=== PATIENT | male | born 1965 | race African-American/Black ===

== ENCOUNTER 2021-09-29 20:53 | Emergency (ER) | payer OTHER, SELFPAY ==
[2021-09-29 20:54] VITALS: BP 174/98; PULSE 96; RESP 18; TEMP 36.7; O2SAT 99; BMI 29.2
--- NOTE | 2021-09-29 21:06 | RAD_ITS ---
EXAM: XR RIGHT SHOULDER COMPLETE, 2 OR MORE VIEWS CLINICAL INDICATION: atraumatic right shoulder pain TECHNIQUE: Two or more views of the right shoulder. This report was created using [employer] report generation technology. COMPARISON: None. FINDINGS: BONES/JOINTS: Unremarkable. No acute fracture. No subluxation. Normal alignment. Preservation of the joint space. No sclerotic or destructive changes observed. SOFT TISSUES: Unremarkable. No soft tissue swelling or gas. No radiopaque foreign body. RAD/Shoulder min 2 Views IMPRESSION: Negative right shoulder x-rays. Electronically Signed: Te Delaney MD at 21:33 EDT ,
--- NOTE | 2021-09-29 21:06 | EKG12_ITS ---
Test Reason : DYSRHYTHMIA Blood Pressure : / mmHG Vent. Rate : 080 BPM Atrial Rate : 080 BPM P-R Int : 198 ms QRS Dur : 102 ms QT Int : 372 ms P-R-T Axes : 052 -38 027 degrees QTc Int : 429 ms Normal sinus rhythm Left axis deviation Abnormal ECG Confirmed by ANGEL BERNABE, ALKA ([id number]), make up editor ANIRUDH SOTELO ([id number]) on 10/01/2021 10:13:13 AM Referred By: NAS Confirmed By:ALKA ORTIZ MD
--- NOTE | 2021-09-29 21:07 | EX.ED.UPPERE ---
HPI History of Present Illness Chief Complaint: Upper Extremity Injury Detail of Chief Complaint: Atraumatic right shoulder pain. Informant: patient Occured/Mechanism Mechanism/Context: No injury and No blunt trauma Onset/Context/Timing Onset: Today and Hours Context: Gradual Onset Timing: Continuous Quality of Pain: Dull and Aching Current Severity: Mild Maximum Severity: Mild Associated Symptoms Associated Symptoms: Negative for Parasthesia, Weakness and Loss of Funtion Narrative Narrative: 55-year-old male no seen past medical or surgical history. Currently on no medications. States he normally works third shift he was taking a nap today this morning and when he woke up he had right shoulder discomfort. He does not know of any type of injury. He has never had any surgery or trauma to his right shoulder. He denies any falls or heavy lifting. He drives a tow motor at work. He denies any fever, chills or redness. He said he had discomfort like this before in his right shoulder but is never lasted all day. Denies any midsternal or left-sided chest pain. Denies any exertional symptoms. Pain is somewhat worse with movement. He denies any fever chills or recent illness. He is right-hand dominant. Prior similar symptoms: No Recent Illness/Hospitalization: No PFSH PFSH Medical History no medical history no medical history Home Medications naproxen 500 mg PO BID PRN #20 tab 04/16/15 [Rx Last Taken Unknown] Allergy/AdvReac Type Severity Reaction Status Date / Time No Known Allergies Allergy Verified 09/29/21 20:56 Surgical History no surgical history no surgical history Social History Smoking Status: Never smoker ROS ROS ED ROS Narrative Denies recent illness. Review of Systems ROS Unobtainable: Denies due to encephalopathy Constitutional Constitutional ED: Denies fever(s) Eyes Eyes: Denies change in vision ENT ENT ED: Denies ear pain Cardiovascular Cardiovascular: Denies chest pain Respiratory/Chest Respiratory/Chest: Denies cough or dyspnea Gastrointestinal Gastrointestinal: Denies abdominal pain Genitourinary Genitourinary ED: Denies dysuria Musculoskeletal Musculoskeletal: Denies back pain, myalgias or neck pain Integumentary Denies rash Neurologic Neurologic: Denies headache(s) Psychiatric Psychiatric: Denies depression Endocrine Endocrinology: Denies polyuria Hematologic/Lymphatic Hematologic/Lymphatic: Denies easy bruising Allergic/Immunologic Allergic/Immunologic ED: Denies urticaria EXAM Physical Exam Narrative Exam Narrative: Noise male no acute distress vital signs stable afebrile. Blood pressure elevated 174/98. Pulse ox 9 9% on room air no hypoxia. H EENT exam unremarkable. Neck nontender. Trachea midline. Lungs clear to auscultation. Heart regular rhythm no murmur. Chest wall nontender. Abdomen soft nontender. Moving all 4 extremities. Calves are nontender no edema. Equal symmetrical barber or beauty shop manager strength. Normal flexion-extension of both wrists, elbows and shoulders. He has some mild discomfort with moving his right shoulder. There is no redness or warmth. No swelling. No signs of trauma. No axillary lymphadenopathy. Equal symmetrical radial pulses. Back nontender. Neurologically is awake and alert. Const Vital Signs: 09/29/21 20:54 Temperature 98.0 F Temperature Source Temporal Pulse Rate 96 Respiratory Rate 18 Blood Pressure 174/98 H Blood Pressure Mean 123 Pulse Ox 99 Oxygen Delivery Method Room Air Positive well nourished and well developed; Negative for cachectic, contractures or unkempt General Appearance ED: well developed and NAD; Negative for unkempt, cachectic, contractures, cyanotic or diaphoretic Nutritional Appearance: Negative for cachectic HEENT Reports moist mucous membranes normocephalic; Negative for atraumatic or trauma Eyes PERRL and EOMs intact bilaterally Neck full ROM and supple General: Negative for tenderness Chest Wall inspection of chest normal and palpation of chest normal Resp normal respiratory effort and clear to auscultation bilaterally Auscultation: Negative for rales, rhonchi or wheezes Cardio regular rate, regular rhythm, S1 normal heart sound, S2 normal heart sound and no murmurs GI non-tender, non-distended and no masses Inspection: Negative for abdominal distention Auscultation: normoactive bowel sounds; Negative for hyperactive bowel sounds or hypoactive bowel sounds Palpation: soft; Negative for tender, guarding or rebound tenderness present Back/Spine no CVA tenderness General Back: Negative for CVA tenderness Cervical Spine: Negative for cervical spine tenderness Thoracic Spine / Upper Back: Negative for thoracic spinal tenderness Lumbar Spine / Lower Back: Negative for lumbar spinal tenderness Extremity normal to inspection and full ROM Extremity Narrative: Right shoulder minimal tenderness. Normal range of motion. Able to do AB and adduction. Able to extend and lift his hand over his head. No swelling. No redness. No bony deformity. General Extremety ED: Negative for edema General Extremity: Negative for edema Neuro oriented x3 and moves all extremities Sensorium / Orientation: alert, oriented to person, oriented to place and oriented to time; Negative for orientation impaired, lethargic or stuporous Motor Exam: strength 5/5 throughout Psych mental status grossly normal Appearance: Negative for unkempt Attitude: No agitated Mood & Affect: Negative for depressed or tearful Skin Lesions: no lesions Rashes: no rashes Trauma: no lacerations or abrasions; Negative for abrasion or laceration MDM MDM MDM Narrative Medical decision making narrative: Middle-aged male with atraumatic right shoulder pain today. Clinically his exam is benign other than mild discomfort. He has range of motion. Does not appear to be a rotator cuff injury. It does appear to be musculoskeletal. X-ray and EKG will be obtained. However I do not feel this is cardiac. Repeat exam at 9:30 PM doing well. We discussed his test results and x-rays not be discharged to home. Radiography Diagnostic Testing: Right shoulder x-ray interpreted by me 4 view shows no acute abnormality. Normal bony structure. No fracture. No dislocation. No substantial signs of arthritis. Chest x-ray, portable, single view interpreted by me shows no acute abnormality. Normal cardiac silhouette, mediastinum and lung zurita. No bony abnormalities. Rhythm Strip Rhythm Strip: Sinus Rhythm Rate: 80 EKG Initial EKG: Attestation: I personally reviewed and interpreted this EKG as follows: Interpretation: Sinus Rhythm and No Acute Injury Pattern Comments: Normal sinus rhythm rate of 80 no acute signs of WA or ischemia. Prior EKG tracings: not available for review Discharge Plan Triage Chief Complaint: Upper Extremity Injury ED Provider: Mauricio Zavala Dx/Rx/DC Orders Clinical Impression: Right shoulder strain Instructions: ED Muscle Strain, Extremity Prescriptions: No Action naproxen 500 MG tablet 500 mg PO BID PRN Qty: 20 RF: 0 Primary Care Provider: Care Physician,No Primary Referrals: Jacinto Rojo MD [STAFF PHYSICIAN] - 1 Week Care Physician,No Primary [Primary Care Provider] - Activity Restrictions/Additional Instructions: This appears to be musculoskeletal pain in your right shoulder. Motrin for pain and inflammation. Ice to your shoulder to decrease pain and inflammation. This should progressively improve. Follow-up with a doctor I referred you to Dr. Jacinto Rojo to get a primary care physician. Also tonight your blood pressure was elevated which may or may not mean anything but it needs to be rechecked to make sure you are not developing high blood pressure. Disposition Disposition: Home, Self Care
--- NOTE | 2021-09-29 21:10 | RAD_ITS ---
EXAM: XR CHEST, 1 VIEW CLINICAL INDICATION: right upper outer cp TECHNIQUE: Frontal view of the chest. This report was created using [employer] report generation technology. COMPARISON: 12/26/2011. FINDINGS: LUNGS AND PLEURAL SPACES: Unremarkable. No consolidation or edema. No pneumothorax. No effusion. HEART: Unremarkable. Cardiac silhouette not enlarged. MEDIASTINUM: Central airways and mediastinal contour are unremarkable. BONES/JOINTS: Unremarkable. SOFT TISSUES: Unremarkable. RAD/Chest 1 View (Portable) IMPRESSION: No radiographic evidence of acute cardiopulmonary disease. Electronically Signed: Te Delaney MD at 21:32 EDT ,
== END 2021-09-29 21:44 | disposition home or self-care (01) ==
LOC: ED 21:37
PROVIDERS: Emergency Provider Emergency Medicine; Visit Provider Emergency Medicine
DX: S46.911A Strain of unspecified muscle, fascia and tendon at shoulder and upper arm level, right arm, initial encounter (principal); X58.XXXA Exposure to other specified factors, initial encounter
CPT/HCPCS: 71045; 73030; 93005; 99282

== ENCOUNTER 2023-12-28 08:20 | Emergency (ER) | payer OTHER, SELFPAY ==
[2023-12-28 08:23] VITALS: BP 168/102; PULSE 89; RESP 16; TEMP 36.6; O2SAT 99; BMI 32.1
--- NOTE | 2023-12-28 08:45 | RAD_ITS ---
STUDY: X-RAY - RIGHT ANKLE REASON FOR EXAM: Male, 58 years old. Pain after ran over by forklift TECHNIQUE: 3 view(s) of the ankle. COMPARISON: None. FINDINGS: Normal visualized distal tibia and fibula. Nondisplaced transverse fracture of the medial malleolus. Nondisplaced oblique fracture of the lateral malleolus. Normal tibiotalar articulation and ankle mortise. Normal visualized talus and calcaneus. The visualized subtalar, talonavicular, calcaneocuboid and tarsal articulations are normal. Soft tissue swelling RAD/Ankle min 3 Views IMPRESSION: Nondisplaced transverse fracture of the medial malleolus as well as a spiral fracture of the lateral malleolus with overlying soft tissue swelling. Electronically Signed: Harvey Camp MD at 9:17 EDT ,
--- NOTE | 2023-12-28 08:46 | EX.ED.DYSGE1 ---
HPI History of Present Illness Chief Complaint: Lower Extremity Injury Narrative Narrative: Patient is a 58-year-old male with no known significant past medical history does not follow with a physician who presented to the emergency department with a chief complaint of right ankle pain. Patient states that this morning at work a forklift ran over his foot causing him pain. He states that it is painful for him time to bear weight he did not take any medication for pain prior to coming here. Patient states that he did fall over after his foot was run over however he states that he did not hit his head did not pass out did not lose consciousness does not take any blood thinning medications. He states that he is not having pain or else. PFSH PFSH Medical History no medical history Home Medications ?Medication ?Instructions ?Recorded ?Last Taken ?Type naproxen 500 mg tablet 500 mg PO BID PRN #20 tabs 04/16/15 Unknown Rx Allergy/AdvReac Type Severity Reaction Status Date / Time No Known Allergies Allergy Verified 12/28/23 08:34 Surgical History no surgical history Social History Smoking Status: Never smoker ROS ROS ED ROS Narrative Constitutional: Denies headaches, fevers, chills Eyes: No change in vision double vision blurry vision Cardiovascular: Denies chest pain or palpitations Respiratory: Denies coughing wheezing shortness of breath Abdomen: Denies nausea vomit diarrhea or abdominal pain : Denies urinary symptoms Neurological: Denies numbness, weakness, tingling Musculoskeletal: Complains of right ankle pain as noted above Skin: Denies rashes or lesions EXAM Physical Exam Narrative Exam Narrative: General: Patient lying in bed rest comfortably did not appear to be in acute distress Head: Atraumatic, normocephalic Eyes: PERRL bilaterally, EOMI bilaterally, no conjunctival injection noted Neck: Soft, supple, trachea midline Cardiovascular: Regular rate and rhythm no murmurs gallops rubs noted Respiratory: Clear to auscultation bilaterally Abdomen: No tenderness palpation Musculoskeletal: Patient has tenderness palpation over the medial and lateral malleoli bilaterally, all other bony prominences and joints taken through full range of motion no pain elicited Extremities: DP pulses +2/4 in the bilateral lower extremities, no pedal edema on exam, +5/5 strength noted in the bilateral upper and lower extremities Neurological: Patient is following commands that he was at [facility] year is 2023 Skin: Warm, dry, intact Const Vital Signs: 12/28/23 08:23 12/28/23 08:56 Temperature 97.9 F Temperature Source Temporal Pulse Rate 89 89 Respiratory Rate 16 16 Blood Pressure 168/102 H 164/90 H Blood Pressure Mean 124 114 Pulse Ox 99 99 Oxygen Delivery Method Room Air Room Air MDM MDM MDM Narrative Medical decision making narrative: Patient is a 58-year-old male who presents to the emergency department chief complaint of right ankle pain. Patient will have a workup performed here on the differential diagnose includes but not limited to ankle sprain, medial malleolus fracture, lateral malleolus fracture, metatarsal fracture. Once workup is obtained and reviewed he will be reevaluated. Patient was offered pain medication states that he does not need any currently Patient's x-ray reviewed and did appear to have a nondisplaced transverse fracture of the medial malleolus as well as a spiral fracture of the lateral malleolus with overlying soft tissue swelling. No concern for open fracture. Patient's x-ray of his foot showed normal examination of the foot. Did discuss the case with on-call clinical haematologist as there is no on-call orthopedics here today Dr. Martinez and he recommends a AO splint crutches nonweightbearing and follow-up in the office with him. Patient was placed in a AO splint with plaster. After application of the splint patient remained neurovascularly intact. Repeat x-ray was obtained which showed satisfactory reduction of the bilateral malleolus fracture. Did discuss results with the patient and he would like to go home now. I did offer him pain medication he states that he will just take ibuprofen Tylenol for pain control. He is encouraged to ice through the splint. He is encouraged to return with worsening pain or any other concerns. He was encouraged to follow-up with Dr. Martinez and he was referred to a primary care physician. He was encouraged to monitor his blood pressure at home he is completely asymptomatic here at this point in time. All question concerns were answered he is discharged home in stable condition. Procedure note Splint application Indication: Bimalleolar fracture Patient had Webril applied to the right lower extremity followed by plaster this was molded in place. Thang wrap was then applied over and post reduction splinting x-rays were obtained as noted above. Patient once again remains neurovascularly intact. Radiography Diagnostic Testing: Clinical Impression(s) from Imaging Studies Ankle X-Ray 12/28/23 08:45 IMPRESSION: Nondisplaced transverse fracture of the medial malleolus as well as a spiral fracture of the lateral malleolus with overlying soft tissue swelling. Electronically Signed: Harvey Camp MD at 9:17 EDT , Foot X-Ray 12/28/23 09:00 IMPRESSION: Normal x-ray examination of the foot. Electronically Signed: Harvey Camp MD at 9:18 EDT , Ankle X-Ray 12/28/23 10:15 IMPRESSION: Satisfactory reduction of the bimalleolar fracture. Electronically Signed: Harvey Camp MD at 10:50 EDT , Discharge Plan Triage Chief Complaint: Lower Extremity Injury ED Provider: Nadeem Vee Dx/Rx/DC Orders Clinical Impression: Ankle fracture, bimalleolar, closed Prescriptions: No Action naproxen 500 MG tablet 500 mg PO BID PRN Qty: 20 0RF Primary Care Provider: Care Physician,No Primary Referrals: Care Physician,No Primary [Primary Care Provider] - Te Martinez DPM [Med Staff - Active Staff] - Luis Santizo MD [Med Staff - Active Staff] - Activity Restrictions/Additional Instructions: You are to use the crutches and remain nonweightbearing on the right lower extremity. Follow-up with Dr. Martinez in the outpatient setting. Follow-up with the family doctor that you referred to and keep a close eye on your blood pressure. Return for increasing pain in your right lower extremity or any other concerns. Ice, elevate, use ibuprofen Tylenol [id number] for pain control Print Language: Romanian Disposition Disposition: Home, Self Care
[2023-12-28 08:56] VITALS: BP 164/90; PULSE 89; RESP 16; O2SAT 99
--- NOTE | 2023-12-28 09:00 | RAD_ITS ---
STUDY: X-RAY - RIGHT FOOT CLINICAL: Male, 58 years old. Pain following injury. TECHNIQUE: 2 view(s) of the foot. COMPARISON: None. FINDINGS: Normal talus, calcaneus, and tarsal bones. Normal visualized subtalar, talonavicular, calcaneocuboid, tarsal and tarsometatarsal articulations. Normal metatarsi. Normal metatarsophalangeal joint of the great toe. Normal tibial and fibular sesamoid bones. Normal interphalangeal joint of the great toe. Normal phalanges of the great toe. Normal second through fifth metatarsophalangeal joints. Normal interphalangeal joints and phalanges of the lesser toes. The soft tissue structures are unremarkable. No transverse fracture of the medial malleolus and spiral fracture of the lateral malleolus. RAD/Foot 2 Views IMPRESSION: Normal x-ray examination of the foot. Electronically Signed: Harvey Camp MD at 9:18 EDT ,
--- NOTE | 2023-12-28 10:15 | RAD_ITS ---
STUDY: X-RAY - RIGHT ANKLE REASON FOR EXAM: Male, 58 years old. Post splint TECHNIQUE: 3 view(s) of the ankle. COMPARISON: Comparison is made with prior study done earlier today. FINDINGS: There is satisfactory reduction of the bimalleolar fracture. RAD/Ankle min 3 Views IMPRESSION: Satisfactory reduction of the bimalleolar fracture. Electronically Signed: Harvey Camp MD at 10:50 EDT ,
[2023-12-28 11:44] VITALS: BP 171/101; PULSE 85; RESP 18; TEMP 36.8; O2SAT 97
== END 2023-12-28 11:45 | disposition home or self-care (01) ==
PROVIDERS: Emergency Provider Emergency Medicine; Visit Provider Emergency Medicine
DX: S82.841A Displaced bimalleolar fracture of right lower leg, initial encounter for closed fracture (principal); W24.0XXA Contact with lifting devices, not elsewhere classified, initial encounter; Y99.0 Civilian activity done for income or pay; Y92.89 Other specified places as the place of occurrence of the external cause
CPT/HCPCS: 29515; 73610; 73620; 99283

== ENCOUNTER → 2024-01-17 | Outpatient (CLI) | payer OTHER, SELFPAY ==
--- NOTE | 2024-01-17 10:37 | EKG12_ITS ---
Test Reason : PREOP Blood Pressure : / mmHG Vent. Rate : 074 BPM Atrial Rate : 074 BPM P-R Int : 196 ms QRS Dur : 092 ms QT Int : 380 ms P-R-T Axes : 060 036 036 degrees QTc Int : 421 ms Normal sinus rhythm Normal ECG Confirmed by LUCÍA BERNABE, DAVE ([id number]), editor managing director ANIRUDH SOTELO ([id number]) on 01/17/2024 11:10:00 A M Referred By: Scott Arellano Confirmed By:DANNA CASTREJON MD
[2024-01-17 11:17] LABS: Absolute Lymphocyte Count 2.07 X10^3/uL (0.83-4.51); Absolute Neutrophil Count 4.7 X10^3/uL (2.0-7.7); Basophil# 0.07 X10^3/uL; Basophil% 0.9 % (0-1); Eosinophil# 0.21 X10^3/uL; Eosinophils% 2.7 % (0-5); Hematocrit 41.9 % (40-54); Hemoglobin 13.6 g/dL (13.0-16.5); Lymphocyte # 2.07 X10^3/ul (0.83-4.51); Lymphocyte % 26.9 % (19-41); Mean Corp Hgb Conc 32.5 g/dL (32-36); Mean Corpuscular Volume 86.2 fL (80-94); Mean Platelet Vol. 9.3 fl (6.2-12.0); Monocyte# 0.62 X10^3/uL; Monocyte% 8.1 % (0-10); NRBC Flagged by Analyzer 0 % (0-5); Neutrophil # 4.67 X10^3/uL (2.7-7.7); Neutrophil % 60.6 % (47-70); Platelet Count 280 K/mm3 (150-450); RBC Distribution Width CV 12.8 % (11.6-14.6); RBC Distribution Width SD 40.3 fl (35.1-43.9); Red Blood Count 4.86 M/mm3 (4.6-6.2); White Blood Count 7.7 K/mm3 (4.4-11.0)
[2024-01-17 11:27] LABS: Anion Gap 6 (5-15); BUN 12 mg/dL (7-18); BUN/Creat Ratio 12.6 RATIO (10-20); Calcium,Total 9.3 mg/dL (8.5-10.1); Chloride 106 mmol/L (98-107); Creatinine, Serum 0.95 mg/dL (0.70-1.30); EST Glomerular Filtration Rate 86 mL/min (>60); Est Glom Filt Rate - Afr Amer 104 mL/min (>60); Glucose 103 mg/dL (74-106); Sodium Level 140 mmol/L (136-145)
== END | disposition home or self-care (01) ==
PROVIDERS: Referring Provider Student in an Organized Health Care Education/Training Program; Visit Provider Student in an Organized Health Care Education/Training Program
DX: Z01.810 Encounter for preprocedural cardiovascular examination (principal); Z01.818 Encounter for other preprocedural examination
CPT/HCPCS: 36415; 80048; 85025; 93005

== ENCOUNTER 2024-03-22 11:30 | Outpatient (RCR) | payer OTHER, SELFPAY ==
--- NOTE | 2024-02-09 19:02 | HP.PTEVAL ---
Patient's Visit Information Visit Information Visit Information: MILDRED MENDOZA is a 58 year old M referred to Physical Therapy by FELIPE Gallo with a diagnosis of R ankle fracture DOS 01/18/24. Date of Evaluation: 02/09/24 Physical Therapist: Corey Thompson, PT, ATC Visit Plan Frequency: 2-3x /Week Duration: 4-6 Weeks Plan: R ankle stretching and strengthening, balance and proprio when no CAM boot, PROM/mobs, bike, and HEP Subjective Subjective: DOI: 12/28/23. DOS: 01/18/24. Pt reports he was walking at work when he was hit by a tow motor and fell, which resulted in a fractured leg. Pt reports it took 3 weeks to get his surgery. Pt reports he is feeling better overall since having his surgery. Pt reports his R foot is numb all of the time now. 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 Pt reports he has to be able to climb on/off a tow motor, and walk approximately 50% of the time. Pt reports he has 3 stairs to enter his house, and is able to negotiate them one step at a time. Pt reports he is very limited with cleaning his house at this time secondary to pain. Pt would also like to be able to drive again as he is unable to at this time. 0/10 pain while sitting at rest, 4/10 pain at worst. No sleep difficulty at this time. Pain R ankle: Pain Intensity (Out of 10): 0 Pain Intensity Range: 4 Objective Objective: Neuro: B LE sensation is WNL to light touch ROM: L ankle DF= 0, PF= 52 degree; R ankle DF= 3, PF= 30 degrees MMT: L ankle DF= 35, PF= 47 #F; R ankle DF= 17, PF= 45 Gait: Pt is able to ambulate 120 feet with cam boot and crutches Balance/Special Test Scores Lower Extremity Functional Score: 42 Goals Goal 1:: Decrease R ankle pain x 50% to aid with ambulation Goal Time Frame: 4-6 Weeks Goal 2:: Increase R ankle DF ROM x 10 degrees to aid with restoring a more normalized gait pattern Goal Time Frame: 4-6 Weeks Goal 3:: Increase R ankle strength x 10 #F to aid with RTW without limitation Goal Time Frame: 4-6 Weeks Goal 4:: I with HEP Goal Time Frame: 4-6 Weeks Rehabilitation Potential Physical Therapy Diagnosis: Pt has R ankle pain, weakness, and limited ROM secondary to R ankle Fx Rehabilitation Potential: Good Anticipated Interventions Patient/Client Instruction: Educate patient on: Condition and Plan of Care For the Purpose of:: To improve self management Therapeutic Exercise to Include: Strength training, Endurance training, Balance training, Flexibilty training, Gait and locomotor training, Passive ROM and Active ROM For the Purpose of:: To decrease pain, To increase ROM and To improve muscle performance and motor function Cryotherapy (ice pack, ice massage): Yes For the Purpose of:: To decrease pain Text: Thank you for the opportunity to evaluate your patient. For Medicare and Medicare HMO plans, please review the plan of care and approve it. It will need to be FAXED BACK to us at [phone] for Medicare purposes. For Medicare only, by signing this I certify the plan of care. Please let me know if there are questions or concerns regarding this plan of care. Physician Signature: Date:
--- NOTE | 2024-03-22 12:34 | HP.PTDCSUM ---
Discharge Summary D/C summary: It has been my pleasure to treat MILDRED MENDOZA referred by FELIPE Gallo, with the diagnosis of R ankle fracture DOS 01/18/24 for a total of 13 visit(s). Discharge Date: Please see the following information for a summary of their discharge status. Subjective Subjective: Pt reports he feels really good at this time. Pain R ankle: Pain Intensity (Out of 10): 0 Overall Improvement % Improvement: 96 Objective Objective/Function: MMT: R ankle DF= 36,PF= 50 #F ROM: R ankle DF 12 degrees 0/10 pain today Pt is I with HEP Goals Goal 1:: Decrease R ankle pain x 50% to aid with ambulation Goal Progress: Goal Met Goal 2:: Increase R ankle DF ROM x 10 degrees to aid with restoring a more normalized gait pattern Goal Progress: Goal Met Goal 3:: Increase R ankle strength x 10 #F to aid with RTW without limitation Goal Progress: Goal Met Goal 4:: I with HEP Goal Progress: Goal Met Plan Plan: Discharge to HEP D/C Information d/c sentence: If there are questions or concerns regarding this patient's physical therapy, please feel free to call me at [phone]. Thank you for the referral of this patient. Sincerely, Corey Thompson, PT, ATC Balance/Gait/Functional tests Balance/Special Test Scores Lower Extremity Functional Score: 67 Improvement % Improvement: 96
== END 2024-03-22 19:00 | disposition home or self-care (01) ==
LOC: PT 11:30
PROVIDERS: Referring Provider Physician Assistant Surgical; Visit Provider Physician Assistant Surgical
DX: S82.841D Displaced bimalleolar fracture of right lower leg, subsequent encounter for closed fracture with routine healing (principal)
CPT/HCPCS: 97110; 97140; 97161; 97530